=== PATIENT | male | born 1955 | race Caucasian/White ===

== ENCOUNTER 2017-03-05 06:05 | Day surgery (SDC) | payer BC, OTHER ==
[~2017-03-05] VITALS: Ht 172.7 cm; Wt 70.3 kg
--- NOTE | ~2017-03-05 | H ---
[facility] [place] [address] HISTORY AND PHYSICAL Name: TACOS TORRES Room #: 150-5 [facility]..#: [id number] Admission: 03/05/17 Attend Phys: Jose Foss MD Discharge: Date of : 59 Report #: [id number] THIS REPORT FOR: //name// CC: FAM unknown Noel Foss PATIENT OF: Dr. Jose Foss and Dr. Noel Zamarripa. DATE OF ADMISSION AND SURGERY: 03/06/2017. CHIEF COMPLAINT: Right groin bulge. HISTORY OF PRESENT ILLNESS: The patient is a 61-year-old white male who about 10-11 weeks ago started noticing a bulge in the right groin. He denies significant pain or discomfort. He also denied changes in bowel or bladder habits. He has had a colonoscopy in the past, which was normal. He saw Dr. Zamarripa who recommended surgical consultation. PAST MEDICAL HISTORY: Hypertension, appendectomy in 2009, and ganglion cyst removed from the ankle in 2007. MEDICATIONS: Lisinopril 20 mg p.o. daily, acetaminophen 500 mg 2 capsules p.o. q.6 hours p.r.n., and glucosamine. ALLERGIES: No known drug allergies. FAMILY HISTORY: Father with history of hypertension, brother with history of hypertension and hypercholesterolemia. SOCIAL HISTORY: Smokes about a pack of cigarettes a day. He is . Drinks alcohol occasionally. REVIEW OF SYSTEMS: Pertinent positives as above. Full review of systems otherwise negative. PHYSICAL EXAMINATION: GENERAL: This is a well-developed, well-nourished white male, in no acute distress. VITAL SIGNS: Stable. He is afebrile. Height is 68 inches. His weight is 160 pounds, BMI 24.42. HEENT: Unremarkable. LUNGS: Clear to auscultation bilaterally. CARDIOVASCULAR: Regular rate and rhythm. No murmurs, S3 or S4. Normal PMI. ABDOMEN: Soft, flat, nontender, no palpable masses. No organomegaly. GENITOURINARY: Normal scrotum, phallus, and testes. Moderate sized right inguinal hernia, which is reducible. [address] [address] HISTORY AND PHYSICAL Name: TACOS TORRES Room #: 150-5 [facility]#: [id number] Admission: 03/05/17 Attend Phys: Jose Foss MD Discharge: Date of : 59 Report #: [id number] EXTREMITIES: No clubbing, cyanosis, or edema. NEUROLOGIC: Intact with a clear mental status. IMPRESSION: A 61-year-old white male with right inguinal hernia. I fully discussed with the patient the diagnosis, prognosis, and treatment options. I recommended a right inguinal hernia repair with mesh. He states he understands and agrees to propose surgery. PLAN: We will perform a right inguinal hernia repair under local IV sedation as an outpatient at [facility]. The procedure and its risks, benefits and possible complications including the use of mesh fully discussed with the patient, he states he understands and agrees to propose with surgery. <ELECTRONICALLY SIGNED> By: Jose Foss MD 03/05/17 1344 1307 1350 Jose Foss MD /nt
--- NOTE | ~2017-03-05 | EKG ---
[address] [address] ELECTROCARDIOGRAM REPORT Name: TACOS TORRES Room #: 150-5 [facility]#: [id number] Admission: 03/05/17 Attend Phys: Jose Foss MD Discharge: Date of : 59 Report #: [id number] THIS REPORT FOR: //name// [facility] Test Date: 2017-03-05 Test Time: 07:42:52 Pat Name: TACOS TORRES Department: Room: 150 5 Gender: M Top Coater: JAMAL : 1955 Requested By: Jose Foss Order Number: [id number] MD: Can Torres Measurements Intervals [place] Rate: 74 P: 59 TX: 140 QRS: 77 QRSD: 104 T: 56 QT: 394 QTc: 438 Interpretive Statements Sinus rhythm RSR' in V1 or V2, right VCD No previous ECG available for comparison Electronically Signed On 03-05-2017 9:10:26 CDT by Can Torres [email or web address] <ELECTRONICALLY SIGNED> By: Can Torres MD, [facility] 03/05/17 0910 0742 1 Can Torres MD, FACC /EPI
--- NOTE | ~2017-03-05 | O ---
[facility] [place] [address] OPERATIVE REPORT Name: TACOS TORRES Room #: 150-5 [facility]#: [id number] Admission: 03/05/17 Attend Phys: Jose Foss MD Discharge: Date of : 59 Report #: [id number] THIS REPORT FOR: //name// CC: Noel Foss DATE OF SERVICE: 03/05/2017 PATIENT OF: Dr. Jose Foss and Dr. Noel Zamarripa. PREOPERATIVE DIAGNOSIS: Right inguinal hernia. POSTOPERATIVE DIAGNOSES: Right inguinal hernia with right cord lipoma. PROCEDURE: Right inguinal hernia repair with Prolene hernia system mesh and excision of right cord lipoma. SURGEON: Jose Foss MD ANESTHESIA: Local IV sedation. DESCRIPTION OF PROCEDURE: The patient was brought to the operating room and placed on the operative table in the supine position. Sequential compression devices were in place for DVT prophylaxis. There was no indication for preoperative antibiotics. The patient underwent IV sedation and the right inguinal area was prepped and draped in a sterile fashion. Skin and subcutaneous tissue were then infiltrated with 0.5% Marcaine and 1% Xylocaine in a 1:1 mixture. Right inguinal skin incision was then performed using #10 scalpel blade. Hemostasis was obtained using electrocautery. Dissection was carried down through the subcutaneous tissue to the external oblique fascia, which was then incised with a knife and opened with the Metzenbaum scissors. The ilioinguinal nerve was identified, dissected free, and injected with a local mixture and preserved. Cord was then elevated and held into place with a Brodhead drain. Cremasteric muscle fibers were then split in the direction of their fibers using clamp and electrocautery. There was no evidence of any indirect inguinal hernia sac. There was a cord lipoma which was dissected free, clamped, excised and tied with a 2-0 chromic tie and sent as specimen to pathology. A small to moderate size direct inguinal hernia defect was identified. The hernia sac was dissected free and incised just above the level of floor and reduced back through the floor into the preperitoneal space. The space was then developed and an extended Prolene hernia system mesh was then inserted through the floor and the underlay patch was then deployed into the preperitoneal space. The connector was left in the floor. The overlay patch was then deployed into the inguinal canal and the mesh was secured at the pubic tubercle, superiorly at the connector using simple interrupted 2-0 Vicryl sutures. The mesh was split and wrapped around the cord, secured to the [facility] [address] [place] [address] OPERATIVE REPORT Name: TACOS TORRES Room #: 150-5 [facility]..#: [id number] Admission: 03/05/17 Attend Phys: Jose Foss MD Discharge: Date of : 59 Report #: [id number] inguinal ligament with simple interrupted 2-0 Vicryl suture. The cord and ilioinguinal nerve were then returned to the canal intact. The external oblique fascia was then closed using running 2-0 Vicryl suture. Jeb's fascia was then reapproximated using 3 simple interrupted 2-0 chromic sutures and the skin then closed with a running 4-0 subcuticular Vicryl stitch. The wound was then dressed with Mastisol, 1/2-inch Steri-Strips cut in half, Telfa, 4 x 4 gauze, sponge and tape. The patient was then taken to the recovery room awake, alert and in good condition. Estimated blood loss was less than 5 mL and the patient tolerated the procedure well. All sponge, lap and instrument counts correct times 2. <ELECTRONICALLY SIGNED> By: Jose Foss MD 03/05/17 1344 1036 1050 Jose Foss MD /nt
[~2017-03-05 06:05] MED LIST: ACETAMINOPHEN1 EACH PO; GLUCOSAMINE HC500 MG PO; LISINOPRIL20 MG PO
[2017-03-05 08:00] VITALS: BP 138/82
[2017-03-05] MEDS ORDERED: NORCO 5-325 TA1 EACH PO (10:41)
== END 2017-03-05 10:30 | disposition home or self-care (01) ==
LOC: TBA 06:05 → OR 06:05 → TBA 06:07 → OR 10:30
DX: K40.90 Unilateral inguinal hernia, without obstruction or gangrene, not specified as recurrent (principal); D17.6 Benign lipomatous neoplasm of spermatic cord; I10 Essential (primary) hypertension; Z90.49 Acquired absence of other specified parts of digestive tract; Z98.890 Other specified postprocedural states; Z79.899 Other long term (current) drug therapy; Z82.49 Family history of ischemic heart disease and other diseases of the circulatory system; F17.210 Nicotine dependence, cigarettes, uncomplicated
CPT/HCPCS: 50010; 50101; 50386; 50417; 54111; 56524; 56526; 56528; 62110; 62850; 70005